=== PATIENT | female | born 1950 | race Caucasian/White ===

== ENCOUNTER 2019-03-03 12:23 | Inpatient (IN) | payer MEDICARE, OTHER ==
[~2019-03-03] VITALS: Ht 154.9 cm; Wt 80.7 kg
[2019-03-03 12:36] VITALS: BP 120/39
--- NOTE | 2019-03-03 12:36 | NUR ---
Patient ambulated to bed 10. RN evaluating patient at bedside.
--- NOTE | 2019-03-03 12:40 | NUR ---
Called code brain.
--- NOTE | 2019-03-03 12:46 | NUR ---
Patient taken to CT scan via gurney by hali, accompanied by RN.
--- NOTE | 2019-03-03 12:49 | NUR ---
68 Y/O FEMALE PRESENTING WITH LEFT SIDED FACIAL DROOP X1 DAY. PER PT STARTED YESTERDAY, FELT TONGUE NUMB, SLURRED SPEECH AND LEFT SIDE DROOP FACE NOTED BY FAMILY MEMBER. UPON NEURO ASSESSMENT PATIENT EQUAL SYMMETRY BOTH UPPER AND LOWER EXTREMITIES IN STRENGTH. 4/5. EYES TO PERRLA. CRANIAL NERVES 3,4,6 WDL, WITH SLIGHT BLURRY VISION. EQUAL SENSATION ON ALL EXTREMITIES. SLIGHT FACIAL DROOP ON LEFT SIDE UPON SMILING WITH LEFT SIDED DROOP EYE, TONGUE MIDLINE. SPEECH CLEAR. PT A/OX4. PER PT ALLERGY TO PNC. MEDICAL HX OF DM, HTN, STROKE 27 YEARS AGO DOES NOT RECALL IF ISCHEMIC OR HEMORRAGHIC. RX PT TAKES MEDICATION FOR BLOOD THINERS, HTN, DM. DENIES N/V/D. SIDE RAIL X1. AT BEDSIDE.
--- NOTE | 2019-03-03 12:49 | NUR ---
DR QUINTERO AT BEDSIDE ; CT SCAN PERFORMED
--- NOTE | 2019-03-03 13:08 | NUR ---
technician automatic at bedside.
[2019-03-03 13:18] LABS: BASOPHILS # (AUTO) 0.1 K/uL (0.00-0.22); EOSINOPHILS # (AUTO) 0.1 K/uL (0-0.4); EOSINOPHILS % (AUTO) 1.2 % (0.0-4.0); HEMATOCRIT 34.9 % (36-48); HEMOGLOBIN 11.5 g/dL (12.0-16.0); LYMPHOCYTES # (AUTO) 2.2 K/uL (2.5-16.5); LYMPHOCYTES % (AUTO) 23.9 % (20.5-51.1); MEAN CORPUSCULAR HEMOGLOBIN 29 pg (27-31); MEAN CORPUSCULAR HGB CONC 33 g/dL (33-37); MEAN CORPUSCULAR VOLUME 87.4 fL (80-94); MONOCYTES # (AUTO) 0.9 K/uL (0.8-1.0); MONOCYTES % (AUTO) 9.8 % (1.7-9.3); NEUTROPHILS # (AUTO) 5.8 K/uL (1.8-7.7); NEUTROPHILS % (AUTO) 64.1 % (42.2-75.2); PLATELET COUNT (AUTO) 249 K/uL (140-450); RED CELL DISTRIBUTION WIDTH 14.3 % (11.6-13.7)
[2019-03-03 13:40] LABS: ANION GAP 16.2 (8-16); CREATININE 1.4 mg/dL (0.6-1.3); POTASSIUM 4.2 mmol/L (3.5-5.1)
[2019-03-03 13:51] LABS: ALBUMIN 3.7 g/dL (3.4-5.0); TOTAL BILIRUBIN 0.4 mg/dL (0.0-1.0)
[2019-03-03 14:06] LABS: PROTHROMBIN TIME 9.9 secs (10.8-13.4)
--- NOTE | 2019-03-03 15:10 | NUR ---
PATIENT RESTING IN BED ; FAMILY AT BEDSIDE
[2019-03-03] MEDS ORDERED: ONDA4TAB PO (15:16)
[2019-03-03] MEDS ORDERED: IMI6I SQ (15:16)
[2019-03-03] MEDS ORDERED: BEN50 PO (15:16)
[2019-03-03] MEDS ORDERED: TOP100 PO (15:16)
[2019-03-03] MEDS ORDERED: APIX5TAB PO (15:16)
[2019-03-03] MEDS ORDERED: CALER120 PO (15:16)
[2019-03-03] MEDS ORDERED: BUDE1AER IH (15:16)
[2019-03-03] MEDS ORDERED: DIT5 PO (15:16)
[2019-03-03] MEDS ORDERED: ATEN50TA8 PO (15:16)
[2019-03-03] MEDS ORDERED: RANI150C PO (15:16)
[2019-03-03] MEDS ORDERED: TRAZ-343 PO (15:16)
[2019-03-03] MEDS ORDERED: HYDR-5092 PO (15:16)
[2019-03-03] MEDS ORDERED: [UNRECOGNIZED DRUG - CODE] PO (15:17)
[2019-03-03] MEDS ORDERED: OMEP40EC24 PO (15:17)
[2019-03-03] MEDS ORDERED: ASPI-1718 PO (15:17)
[2019-03-03] MEDS ORDERED: METF500T PO (15:17)
[2019-03-03] MEDS ORDERED: GABA300C PO (15:17)
[2019-03-03] MEDS ORDERED: SIMV10TA1 PO (15:17)
[2019-03-03] MEDS ORDERED: FLONAS NS (15:17)
[2019-03-03] MEDS ORDERED: MONT10TA35 PO (15:17)
--- NOTE | 2019-03-03 15:34 | NUR ---
PT AMBULATED TO RESTROOM ; WITH PT
[2019-03-03] MEDS ORDERED: HYDROcodone/APAP 5/325 MG 1 TAB TAB PO PRN (15:50)
[2019-03-03] MEDS ORDERED: ONDANSETRON 4 MG/2 ML VIAL IM/IVP PRN (15:50)
[2019-03-03] MEDS ORDERED: ZOLPIDEM 5 MG TAB PO PRN (15:50)
[2019-03-03] MEDS ORDERED: DOCUSATE SODIUM 100 MG GELCAP PO PRN (15:50)
[2019-03-03] MEDS ORDERED: ACETAMINOPHEN 325 MG TAB PO PRN (15:50)
[2019-03-03] MEDS ORDERED: LORazepam 2 MG/ML VIAL IM/IVP PRN (15:50)
[2019-03-03 16:42] LABS: FREE T4 (FREE THYROXINE) 0.84 ng/dL (0.76-1.46); MAGNESIUM 2.2 mg/dL (1.8-2.4); PHOSPHORUS 4.8 mg/dL (2.5-4.9); THYROID STIMULATING HORMONE 1.08 uIU/mL (0.34-3.74)
[2019-03-03 16:45] VITALS: BP 109/46
--- NOTE | 2019-03-03 16:45 | NUR ---
Patient will be admitted to care of dr nguyễn. Admited to [facility]. Will go to room 128a. Belongings list completed. Report to pk sena .
--- NOTE | 2019-03-03 17:00 | NUR ---
RECEIVED PT FROM ER NURSE, PT IS AOX4, AMBULATED TO THE BED, IV LINE ON THE RT AC G. 22 ON SALINE LOCK, PT VERBALIZED A PAIN RATE OF 6/10 FOR HER HEAD, V/S TAKEN AND BP IS 109/46, PULSE IS 60, TEMP IS 97.2, O2 SATURATION IS 99%, NO SIGN OF DISTRESS NOTED AND WILL MONITOR PT. Addendum: 03/03/19 at 7677 by Adeline Bhatia RN TIME OF ADMISSION FOR THE ABOVE NOTE IS 0480
--- NOTE | 2019-03-03 17:05 | NUR ---
MRSA SWAB DONE TO PT AND SAMPLE WAS SENT TO LAB.
[2019-03-03] MEDS: NACL 0.9% 1,000 ML IV SCH (17:31)
--- NOTE | 2019-03-03 17:39 | NUR ---
PT C/O PAIN RATE OF 6/10 FOR HER HEAD AND PAIN MEDICATION WAS GIVEN, WILL RE-ASSESS PAIN AND MONITOR PT.
[2019-03-03] MEDS ORDERED: SUMAtriptan 50 MG TAB PO SCH (18:00)
--- NOTE | 2019-03-03 18:00 | NUR ---
PT WAS ASSISTED TO THE BATHROOM AND BACK TO BED, DENIES PAIN AND NO SOB NOTED.
--- NOTE | 2019-03-03 19:15 | NUR ---
ENDORSED PT TO CALENDER WIND UP HELPER NURSELUDMILA FOR CONTINUITY OF CARE.
--- NOTE | 2019-03-03 19:16 | NUR ---
RECEIVED BEDSIDE REPORT FROM DAY RN. PT IS AAOX4. ON ROOM AIR RESPIRATIONS ARE EQUAL AND UNLABORED. LUNG SOUNDS ARE CLEAR. SKIN IS INTACT. PT AMBULATES WITH ASSIST. IV ON RAC 22G IVF PER ORDERS. LBM 12 C/C FACIAL DROOPING X1DAY. FACIAL SYMMETRY NOTED. WILL ASSESS NEURO. POC DISCUSSED WITH PT. CALL LIGHT IS WITHIN REACH. WILL CONTINUE TO MONITOR.
--- NOTE | 2019-03-03 20:32 | NUR ---
ADMINISTERED MORPHINE FOR HEADACHE 11/25. VSS. ALL QUESTIONS AND CONCERNS ADDRESSED. CALL LIGHT IS WITHIN REACH
[2019-03-03] MEDS: MORPHINE SULFATE 2 MG/ML SYR IVP PRN (20:33)
[2019-03-03] MEDS ORDERED: hydrOXYzine HCL 25 MG TAB PO PRN (21:00)
[2019-03-03] MEDS ORDERED: FAMOTIDINE 20 MG TAB PO PRN (21:00)
[2019-03-03] MEDS ORDERED: metFORMIN 500 MG TAB PO SCH (21:00)
[2019-03-03] MEDS ORDERED: HYDROcodone/APAP 10/325 MG 1 TAB TAB PO PRN (21:00)
[2019-03-03] MEDS ORDERED: SUMAtriptan 6 MG/0.5 ML VIAL SUBQ SCH ×2 (21:00→23:00)
[2019-03-03] MEDS: ALBUTEROL SULFATE/IPRATROPIU 3 ML SOL IH PRN (21:03)
--- NOTE | 2019-03-03 21:25 | NUR ---
SPOKE WITH PT'S DAUGHTER GILMAR REGARDING PTS CONDITION. GILMAR'S NUMBER:[phone]. INFORMED PATIENT WAS ADMITTED TO THE [facility] FLOOR FOR OBSERVATION. GILMAR WILL COME IN TOMORROW.
[2019-03-03] MEDS ORDERED: FAMOTIDINE 20 MG TAB PO SCH (22:00)
[2019-03-03] MEDS ORDERED: SUMAtriptan 6 MG/0.5 ML VIAL SUBQ ONE (22:05)
[2019-03-03] MEDS: ATENOLOL 50 MG TAB PO SCH (22:09)
[2019-03-03] MEDS: MONTELUKAST SODIUM 10 MG TAB PO SCH (22:11)
[2019-03-03] MEDS: TOPIRAMATE 100 MG TAB PO SCH (22:11)
[2019-03-03] MEDS: SIMVASTATIN 10 MG TAB PO SCH (22:11)
[2019-03-03] MEDS ORDERED: SUMAtriptan 6 MG/0.5 ML VIAL SUBQ PRN (22:15)
--- NOTE | 2019-03-03 22:15 | NUR ---
SAMARA MEDICATIONS GIVEN PER ORDERS. HELD ATENOLOL FOR B/P 97/57. PT TOLERATED WELL. ALL NEEDS MET AT THIS TIME. CALL LIGHT IS WITHIN REACH
[2019-03-03] MEDS: APIXABAN 2.5 MG TAB PO SCH (22:24)
[2019-03-03] MEDS: SUMAtriptan 6 MG/0.5 ML VIAL SUBQ SCH (22:44)
[2019-03-04] VITALS: BP 97/57
[2019-03-04 00:05] VITALS: BP 98/31
[2019-03-04 00:10] VITALS: BP 100/37
[2019-03-04] MEDS ORDERED: SUMAtriptan 25 MG TAB PO SCH (00:30)
--- NOTE | 2019-03-04 00:37 | NUR ---
SAMARA IMITRX 25MG PO GIVEN PER ORDERS. VSS. ORTHOSTATIC B/P DOCUMENTED. PT TOLERATED WELL. ALL NEEDS MET AT THIS TIME. CALL LIGHT IS WITHIN REACH.
[2019-03-04] MEDS ORDERED: SUMAtriptan 50 MG TAB PO PRN ×2 (01:35→09:25)
[2019-03-04] MEDS: traZODone 50 MG TAB PO PRN ×2 (01:35→21:00)
[2019-03-04] MEDS: NACL 0.9% 1,000 ML IV SCH ×3 (01:35→21:09)
--- NOTE | 2019-03-04 03:03 | NUR ---
PATIENT IS LAYING COMFORTABLY IN BED. NO S/S OF DISTRESS. ALL NEEDS MET AT THIS TIME. CALL LIGHT IS WITHIN REACH. WILL CONTINUE TO MONITOR.
--- NOTE | 2019-03-04 04:30 | NUR ---
PATIENT IS RESTING COMFORTABLY IN BED. CHEST RISE AND FALL. NO S/S OF DISTRESS. CALL LIGHT IS WITHIN REACH. WILL CONTINUE TO MONITOR.
[2019-03-04] MEDS: MORPHINE SULFATE 2 MG/ML SYR IVP PRN ×2 (05:45→17:18)
--- NOTE | 2019-03-04 05:45 | NUR ---
BLOOD SUGAR 82. ADMINISTERED PRN MORPHINE FOR BARAKAT 09/24. PT TOLERATED WELL. GAVE APPLE JUICE. SAFETY MEASURES ARE IN PLACE. CALL LIGHT IS WITHIN REACH.
[2019-03-04] MEDS ORDERED: DEXTROSE 50% 50 ML SYR IVP PRN (06:40)
[2019-03-04] MEDS ORDERED: INSULIN LISPRO SLIDING SCALE 100 UNITS/ML VIAL SUBQ PRN (06:40)
[2019-03-04] MEDS: BLOOD GLUCOSE MONITORING 1 DEV DEV FS SCH ×4 (06:50→21:14)
[2019-03-04 06:55] LABS: MAGNESIUM 2.1 mg/dL (1.8-2.4); PHOSPHORUS 4.4 mg/dL (2.5-4.9)
[2019-03-04 06:57] LABS: ANION GAP 13.5 (8-16); CARBON DIOXIDE 23.8 mmol/L (21-32); CREATININE 1.2 mg/dL (0.6-1.3); POTASSIUM 4.3 mmol/L (3.5-5.1)
[2019-03-04 06:58] LABS: BASOPHILS % (AUTO) 0.6 % (0.0-2.0); EOSINOPHILS # (AUTO) 0.2 K/uL (0-0.4); EOSINOPHILS % (AUTO) 2.3 % (0.0-4.0); HEMATOCRIT 32.3 % (36-48); HEMOGLOBIN 10.7 g/dL (12.0-16.0); LYMPHOCYTES # (AUTO) 2.5 K/uL (2.5-16.5); LYMPHOCYTES % (AUTO) 30.7 % (20.5-51.1); MEAN CORPUSCULAR HEMOGLOBIN 29 pg (27-31); MEAN CORPUSCULAR HGB CONC 33 g/dL (33-37); MEAN CORPUSCULAR VOLUME 88.4 fL (80-94); MONOCYTES # (AUTO) 0.9 K/uL (0.8-1.0); MONOCYTES % (AUTO) 11.6 % (1.7-9.3); NEUTROPHILS # (AUTO) 4.4 K/uL (1.8-7.7); NEUTROPHILS % (AUTO) 54.8 % (42.2-75.2); PLATELET COUNT (AUTO) 224 K/uL (140-450); RED BLOOD CELL COUNT(AUTO) 3.65 MIL/uL (4.20-5.40); RED CELL DISTRIBUTION WIDTH 14.4 % (11.6-13.7); WHITE BLOOD COUNT (AUTO) 8.1 K/uL (4.8-10.8)
--- NOTE | 2019-03-04 07:06 | NUR ---
GAVE BEDSIDE REPORT TO DAY RN. PT ENDORSED IN STABLE CONDITION.
--- NOTE | 2019-03-04 07:20 | NUR ---
RECEIVED REPORT FROM NIGHT RN. PATIENT IS CURRENTLY AWAKE AND IN BED, NO RESPIRATORY DISTRESS NOTED. PATIENT IS FULL CODE, ALLERGIES TO PENICILLIN, ADHESIVE TAPE. AAOX4, ON ROOM AIR. IV TO RIGHT AC 22G WITH NS INFUSING AT 100 ML/HR. CCHO60 DIET. WILL REVIEW AND CONTINUE WITH PLAN OF CARE FOR THE DAY.
[2019-03-04 08:00] VITALS: BP 123/46
--- NOTE | 2019-03-04 08:35 | NUR ---
PATIENT HAS BEEN SCREENED AND CATEGORIZED MODERATE NUTRITION RISK. PATIENT WILL BE SEEN WITHIN 3-5 DAYS OF ADMISSION. 03/06/19 03/08/[address]
[2019-03-04] MEDS: VERAPAMIL 120 MG CAPER PO SCH (09:00)
[2019-03-04] MEDS: ASPIRIN 81 MG TAB.CHEW PO SCH (09:00)
[2019-03-04] MEDS: PANTOPRAZOLE 40 MG TABEC PO SCH (09:00)
--- NOTE | 2019-03-04 09:50 | NUR ---
ADMINISTERED MORNING MEDICATION. PATIENT TOLERATED WELL. PATIENT REFUSED ASPIRIN. AT BEDSIDE. NO COMPLAINTS AT THIS TIME
[2019-03-04] MEDS: OXYBUTYNIN 5 MG TAB PO SCH (10:00)
[2019-03-04] MEDS: GABAPENTIN 300 MG CAP PO SCH ×2 (10:00→20:55)
[2019-03-04] MEDS: APIXABAN 2.5 MG TAB PO SCH ×2 (10:01→20:58)
[2019-03-04] MEDS: ATENOLOL 50 MG TAB PO SCH ×2 (10:02→20:59)
--- NOTE | 2019-03-04 11:33 | NUR ---
BLOOD SUGAR OF 76. NO ACTION NEEDED.
--- NOTE | 2019-03-04 13:18 | NUR ---
DC PLANNIN68 Y/O FEMALE PATIENT FROM HOME, WHO CAME IN DUE TO LEFT SIDED FACIAL DROOP X 1 DAY. PAST MEDICAL HISTORY INCLUDE HTN, DM, MIGRAINES, ASTHMA AND EARLY STAGE MULTIPLE MYELOMA. INITIAL DIAGNOSIS OF POSSIBLE TIA. CURRENT MEDS INCLUDE WBC 8.1, H/H 10.7/32.3, BUN/CREA 25/1.2, BNP 108 AND HDL 37. NEURO CONSULT WITH DR GROSSMAN RE: TIA. HEAD CT NEGATIVE. CXR SHOWED NO ACUTE CARDIOPULMONARY DISEASE. CAROTID U/S SHOWED NO SIGNIFICANT CAROTID ARTERY STENOSIS. PER PT EVAL NO SKILLED PT INTERVENTIONS DUE TO HER HIGH LEVEL OF FUNCTIONING. TENTATIVE DC PLAN TO HOME WHEN STABLE. Addendum: 03/05/19 at 1358 by Miriam Vizcarra DC BACK TO HOME TODAY, NO NEEDS
--- NOTE | 2019-03-04 14:35 | NUR ---
MEDICATED IMITREX FOR MIGRAINE TO LEFT SIDE OF HEAD.
[2019-03-04 16:00] VITALS: BP 107/34
[2019-03-04] MEDS: metFORMIN 500 MG TAB PO SCH (17:00)
--- NOTE | 2019-03-04 17:15 | NUR ---
ADMINISTERED MORPHINE FOR HEADACHE PAIN 09/24. PATIENT REFUSED METFORMIN AND STATED "IT HAS BEEN RECALLED".
--- NOTE | 2019-03-04 18:58 | NUR ---
PATIENT RESTING QUIETLY IN BED. ALL NEEDS HAVE BEEN MET, NO COMPLAINTS AT THIS TIME. WILL ENDORSE TO NIGHT NURSE FOR CONTINUITY OF CARE
--- NOTE | 2019-03-04 19:20 | NUR ---
RECEIVED PT ON BED EATING DINNER, TOLERATING WELL, AAOX4, ABLE TO MAKE NEEDS KNOWN, VITAL SIGNS TAKEN, DBP ON THE LOW SIDE BUT STABLE, DENIES ANY PAIN OR SOB, NO FACIAL DROOP OR LEFT ARM WEAKNESS NOTED, IVF INFUSING WELL, PLAN OF CARE DISCUSSED, SAFETY MEASURES IN PLACE, CALL LIGHT WITHIN REACH.
[2019-03-04 20:00] VITALS: BP 112/44
[2019-03-04] MEDS: TOPIRAMATE 100 MG TAB PO SCH (20:54)
[2019-03-04] MEDS: SIMVASTATIN 10 MG TAB PO SCH (20:54)
[2019-03-04] MEDS: MONTELUKAST SODIUM 10 MG TAB PO SCH (20:55)
--- NOTE | 2019-03-04 21:00 | NUR ---
BLOOD SUGAR CHECKED WITH 90 RESULT, DUE MEDS ADMINISTERED WITH EDUCATION PROVIDED, ALL NEEDS ATTENDED, SON AT BEDSIDE.
[2019-03-05] VITALS: BP 101/32
--- NOTE | 2019-03-05 | NUR ---
PT AWAKE TALKING TO SON AT BEDSIDE, VITAL SIGNS TAKEN, DBP ON THE LOW SIDE, ASYMPTOMATIC, DENIES ANY CHEST PAIN, NO SOB NOTED, IVF INFUSING WELL, CONTINUE TO MONITOR CLOSELY.
[2019-03-05] MEDS: NACL 0.9% 1,000 ML IV SCH ×2 (00:09→07:46)
--- NOTE | 2019-03-05 03:20 | NUR ---
PT SLEEPING, NO DISTRESS NOTED, IVF INFUSING WELL, MONITORED CLOSELY.
--- NOTE | 2019-03-05 06:00 | NUR ---
PT SLEEPING, EASILY AROUSABLE, VITAL SIGNS TAKEN:BP-96/53, HR-56, DENIES CHEST PAIN, NO SOB NOTED, BLOOD SUGAR CHECKED WITH 87 RESULT, IVF INFUSING WELL, SON AT BEDSIDE, MONITORED CLOSELY.
[2019-03-05 06:26] LABS: BASOPHILS # (AUTO) 0.1 K/uL (0.00-0.22); BASOPHILS % (AUTO) 1.2 % (0.0-2.0); EOSINOPHILS # (AUTO) 0.3 K/uL (0-0.4); EOSINOPHILS % (AUTO) 3.9 % (0.0-4.0); HEMATOCRIT 30.9 % (36-48); HEMOGLOBIN 10.4 g/dL (12.0-16.0); LYMPHOCYTES # (AUTO) 2.2 K/uL (2.5-16.5); LYMPHOCYTES % (AUTO) 26.3 % (20.5-51.1); MEAN CORPUSCULAR HEMOGLOBIN 30 pg (27-31); MEAN CORPUSCULAR HGB CONC 34 g/dL (33-37); MEAN CORPUSCULAR VOLUME 88.8 fL (80-94); MONOCYTES % (AUTO) 11.9 % (1.7-9.3); NEUTROPHILS # (AUTO) 4.7 K/uL (1.8-7.7); NEUTROPHILS % (AUTO) 56.7 % (42.2-75.2); PLATELET COUNT (AUTO) 224 K/uL (140-450); RED BLOOD CELL COUNT(AUTO) 3.47 MIL/uL (4.20-5.40); RED CELL DISTRIBUTION WIDTH 14.3 % (11.6-13.7); WHITE BLOOD COUNT (AUTO) 8.3 K/uL (4.8-10.8)
[2019-03-05] MEDS: BLOOD GLUCOSE MONITORING 1 DEV DEV FS SCH ×2 (06:38→11:57)
[2019-03-05 06:42] LABS: ANION GAP 13.6 (8-16); CARBON DIOXIDE 22.6 mmol/L (21-32); CREATININE 1.2 mg/dL (0.6-1.3); POTASSIUM 4.2 mmol/L (3.5-5.1)
[2019-03-05 06:51] LABS: PHOSPHORUS 4.3 mg/dL (2.5-4.9)
--- NOTE | 2019-03-05 07:25 | NUR ---
PT AWAKE, NO SIGNS OF DISTRESS, BEDSIDE REPORT GIVEN TO IGNACIO ROSADO FOR CONTINUITY OF CARE.
--- NOTE | 2019-03-05 07:26 | NUR ---
REPORT RECEIVED FROM VETERINARY SURGERY TECHNOLOGIST NURSE FOR CONTINUATION OF CARE. PATIENT IS RESTING IN BED, BED IN LOW POSITION, DENIES PAIN. WILL CONTINUE TO MONITOR.
[2019-03-05 08:00] VITALS: BP 113/44
[2019-03-05] MEDS: ALBUTEROL SULFATE/IPRATROPIU 3 ML SOL IH PRN (08:18)
--- NOTE | 2019-03-05 08:18 | NUR ---
SATURATION 99% ON SUPPLEMENTAL OXYGEN AT 2 LPM VIA NC POST HHN THERAPY TITRATED FIO2 TO ROOM AIR LOG SAWYER TO MONITOR ASHLEE/RN NOTIFIED
[2019-03-05] MEDS: PANTOPRAZOLE 40 MG TABEC PO SCH (08:47)
[2019-03-05] MEDS: metFORMIN 500 MG TAB PO SCH (08:47)
[2019-03-05] MEDS: ATENOLOL 50 MG TAB PO SCH (08:49)
[2019-03-05] MEDS: OXYBUTYNIN 5 MG TAB PO SCH (08:49)
[2019-03-05] MEDS: GABAPENTIN 300 MG CAP PO SCH (08:53)
[2019-03-05] MEDS: ASPIRIN 81 MG TAB.CHEW PO SCH (08:54)
[2019-03-05] MEDS: VERAPAMIL 120 MG CAPER PO SCH (08:58)
[2019-03-05] MEDS: APIXABAN 2.5 MG TAB PO SCH (09:03)
--- NOTE | 2019-03-05 09:50 | NUR ---
PATIENT IS IN BED RESTING, MEDICATIONS ADMINISTERED, TOLERATED WELL. DISCHARGE ORDER PER MD. PATIENT IS AWARE AND VERBALIZES READINESS FOR DISCHARGE. BREAKFAST TOLERATED WELL. DENIES PAIN AT THIS TIME. BED IN LOW POSITION, CALL LIGHT ON AND WITHIN REACH, WILL CONTINUE TO MONITOR.
--- NOTE | 2019-03-05 12:00 | NUR ---
PATIENT IS PREPARING FOR DISPO, PATIENT IS RESTING COMFORTABLY, VERBALIZES AN UNDERSTANDING TO FOLLOW UP WITH PCP AND SCHEDULE AN MRI. PATIENT VERBALIZES UNDERSTANDING OF MEDICATIONS AND TREATMENT. BED IN LOW POSITION, CALL LIGHT ON AND WITHIN REACH, WILL CONTINUE TO MONITOR.
[2019-03-05] MEDS ORDERED: ACET-8386 PO (13:41)
[2019-03-05 14:32] VITALS: BP 122/44
[2019-03-05] MEDS ORDERED: INFLUENZA VACCINE QUAD 0.5 ML SYR IMVAC PRN (15:05)
[2019-03-05] MEDS ORDERED: PNEUMOCOCCAL VACCINE 23 MCG/0.5 ML VIAL IMVAC SCH (15:05)
== END 2019-03-05 16:00 | disposition home or self-care (01) | DRG 74 ==
LOC: MED 12:23 → MMU 15:48
PROVIDERS: ADMIT General Practice; ATTEND General Practice
PROC: 3E0234Z Introduction of Serum, Toxoid and Vaccine into Muscle, Percutaneous Approach (ICD-10-PCS; principal; 2019-03-05)
DX: G90.8 Other disorders of autonomic nervous system (principal); D68.59 Other primary thrombophilia; G45.9 Transient cerebral ischemic attack, unspecified; C90.00 Multiple myeloma not having achieved remission; E11.65 Type 2 diabetes mellitus with hyperglycemia; J45.909 Unspecified asthma, uncomplicated; L29.9 Pruritus, unspecified; Z96.651 Presence of right artificial knee joint; G43.909 Migraine, unspecified, not intractable, without status migrainosus; G47.00 Insomnia, unspecified; K21.9 Gastro-esophageal reflux disease without esophagitis; E78.5 Hyperlipidemia, unspecified; E11.40 Type 2 diabetes mellitus with diabetic neuropathy, unspecified; I10 Essential (primary) hypertension; E11.9 Type 2 diabetes mellitus without complications; Z88.6 Allergy status to analgesic agent; Z91.040 Latex allergy status; Z86.711 Personal history of pulmonary embolism; Z88.0 Allergy status to penicillin; Z91.09 Other allergy status, other than to drugs and biological substances; Z79.899 Other long term (current) drug therapy; Z90.49 Acquired absence of other specified parts of digestive tract; Z90.710 Acquired absence of both cervix and uterus; Z87.891 Personal history of nicotine dependence; Z85.89 Personal history of malignant neoplasm of other organs and systems; Z23 Encounter for immunization
CPT/HCPCS: 36415; 70450; 71045; 80048; 80053; 82150; 82948; 83036; 83690; 83735; 83880; 84100; 84439; 84443; 84484; 85025; 85610; 85730; 87081; 90732; 93005; 93880; 94640; 99291; J2270; J3030; J7030; J7620; Q0092